=== PATIENT | male | born 1950 | race Caucasian/White ===

== ENCOUNTER 2017-11-20 07:30 | Inpatient (IN) ==
[2017-11-13 13:40] LABS: Appearance,Urine CLEAR; Bilirubin,Urine NEG (NEG); Color,Urine YELLOW; Glucose,Urine (UA) NEGATIVE (NEG); Leukocyte Esterase,Urine NEG /uL (NEG); Protein,Urine NEG (NEG); Specific Gravity,Urine 1.021 (1.000-1.035); Urine Blood NEG mg/dL (<0.03); Urobilinogen,Urine NEG (NEG)
[2017-11-13 15:40] LABS: Basophils # (Auto) 0 K/mcL (0.0-0.3); Basophils % (Auto) 0.3 % (0.0-2.0); Eosinophils # (Auto) 0.1 K/mcL (0.0-0.7); Eosinophils % (Auto) 1.6 % (0.0-7.0); Granulocytes % (Auto) 77.5 % (38.0-78.0); Lymphocytes # (Auto) 1.2 K/mcL (1.5-4.8); Lymphocytes % (Auto) 14.5 % (15.5-49.0); Mean Cell Volume 94.2 fL (80.0-100.0); Monocytes # (Auto) 0.5 K/mcL (0.1-0.9); Monocytes % (Auto) 6.1 % (1.0-12.0); Platelet Count 199 K/mcL (140-440); RBC 4.89 M/mcL (4.50-5.90); Red Cell Distribution Width 12.9 % (11.5-14.5)
[2017-11-13 16:04] LABS: Blood Urea Nitrogen 18 mg/dl (8-23)
[~2017-11-20 07:30] MED LIST: 0.9 % SODIUM CHLORIDE 9 ML, KETOROLAC 30 MG, ROPIVACAINE HCL/PF 49.5 ML, EPINEPHrine 0.... IJ SCH; CELECOXIB 200 MG CAPSULE PO SCH; PREGABALIN 75 MG CAPSULE PO SCH; oxyCODONE 10 MG TAB.ER.12H PO SCH
[2017-11-20] MEDS ORDERED: ceFAZolin 1 GM VIAL IV SCH (09:15)
[2017-11-20] MEDS ORDERED: SCOPOLAMINE 1 PATCH PATCH TOPICAL ONE (09:25)
[2017-11-20] MEDS ORDERED: TRANEXAMIC ACID 1,000 MG/10 ML VIAL IV ONE (09:50)
[2017-11-20] MEDS ORDERED: ONDANSETRON 4 MG/2 ML VIAL IV ONE (09:50)
[2017-11-20] MEDS ORDERED: MIDAZOLAM 5 MG/5 ML VIAL IV ONE (09:50)
[2017-11-20] MEDS ORDERED: DEXAMETHASONE 10 MG/ML VIAL IV ONE (09:50)
[2017-11-20] MEDS ORDERED: PROPOFOL 200 MG/20 ML VIAL IV ONE (09:50)
[2017-11-20] MEDS ORDERED: LIDOCAINE HCL/PF 100 MG/5 ML SYRINGE IV ONE (09:50)
[2017-11-20] MEDS ORDERED: ePHEDrine 50 MG/ML AMPUL IV ONE (09:50)
[2017-11-20] MEDS ORDERED: GENTAMICIN SULFATE 800 MG/20 ML VIAL IR ONE (10:13)
[2017-11-20] MEDS ORDERED: fentaNYL 100 MCG/2 ML VIAL IV PRN (11:03)
[2017-11-20] MEDS ORDERED: NALOXONE HCL 0.4 MG/ML VIAL IV PRN (11:03)
[2017-11-20] MEDS ORDERED: IPRATROPIUM/ALBUTEROL 3 ML AMPUL.NEB NEB PRN (11:03)
[2017-11-20] MEDS ORDERED: ONDANSETRON 4 MG/2 ML VIAL IV PRN ×2 (11:03→11:11)
[2017-11-20] MEDS ORDERED: diphenhydrAMINE 50 MG/ML VIAL IV PRN (11:03)
[2017-11-20] MEDS ORDERED: BENZOCAINE/MENTHOL 1 LOZENGE PO PRN ×2 (11:03→11:11)
[2017-11-20] MEDS ORDERED: FLUMAZENIL 0.1 MG/ML ML IV PRN (11:03)
[2017-11-20] MEDS ORDERED: PROMETHAZINE 25 MG/ML VIAL IV PRN (11:03)
[2017-11-20] MEDS ORDERED: ACETAMINOPHEN 1,000 MG/100 ML BOTTLE IV ONE (11:03)
[2017-11-20] MEDS ORDERED: LACTATED RINGERS 250 ML IV PRN (11:03)
[2017-11-20] MEDS ORDERED: MEPERIDINE 25 MG/ML SYRINGE IV PRN (11:03)
[2017-11-20] MEDS ORDERED: KETOROLAC 15 MG/ML VIAL IV PRN (11:03)
--- NOTE | 2017-11-20 11:10 | Brief Operative Note ---
Date of procedure: 11/20/17 Pre-op diagnosis: right knee oa Post-op diagnosis: same Procedure: right total knee arthroplasty Grafts/Implants: Yes Anesthesia: GETA, spinal Complications: none Surgeon: Stewart Sanchez Craft Worker: Tere Araujo Estimated blood loss (cc): 150 Tourniquet Time (Minutes): 53 Specimens Removed/Pathology: none sent Condition: stable Disposition: PACU
[2017-11-20] MEDS ORDERED: POLYETHYLENE GLYCOL 3350 17 GM PACKET PO PRN (11:11)
[2017-11-20] MEDS ORDERED: MAGNESIUM HYDROXIDE 30 ML ORAL.SUSP PO PRN (11:11)
[2017-11-20] MEDS ORDERED: ONDANSETRON ODT 4 MG TABLET SL PRN (11:11)
[2017-11-20] MEDS ORDERED: TRANEXAMIC ACID 1,000 MG/10 ML VIAL IV SCH (11:11)
[2017-11-20] MEDS ORDERED: BISACODYL 10 MG SUPP.RECT PR PRN (11:11)
[2017-11-20] MEDS ORDERED: METHOCARBAMOL 750 MG TABLET PO PRN (11:11)
[2017-11-20] MEDS ORDERED: ACETAMINOPHEN 325 MG TABLET PO PRN (11:11)
[2017-11-20] MEDS ORDERED: FLEETS ADULT ENEMA PR PRN (11:11)
[2017-11-20] MEDS ORDERED: LACTATED RINGERS 1,000 ML IV SCH (11:15)
[2017-11-20] MEDS ORDERED: 0.9 % SODIUM CHLORIDE 1,000 ML IV SCH (11:15)
--- NOTE | 2017-11-20 11:49 | Operative Note ---
DATE OF OPERATION: 11/20/2017 PREOPERATIVE DIAGNOSIS: Degenerative joint disease, right knee. POSTOPERATIVE DIAGNOSIS: Degenerative joint disease, right knee. PROCEDURE PERFORMED: Right total knee arthroplasty. SURGEON: Denise Sanchez M.D. HEAD OF HUMAN RESOURCES SURGEON: Tere Araujo PA-C. ANESTHESIA: Spinal with LMA assist. ESTIMATED BLOOD LOSS: 150 mL. COMPLICATIONS: None noted. SPECIMENS REMOVED: None. DRAINS: None. TOURNIQUET TIME: 53 minutes at 300 mmHg. IMPLANTS: DePuy Attune tibial base fixed bearing size 6, cemented; DePuy Attune posterior stabilized size 7, right cemented; DePuy Attune patella medialized dome 38 mm cemented AOX; DePuy Attune tibial insert fixed bearing posterior stabilized size 7, 5 mm AOX. INDICATIONS: The patient has had a long-standing history of worsening pain in the knee that has failed conservative treatment. Radiographs have confirmed advanced degenerative joint disease. After a long discussion about treatment options, the patient elected to proceed with a knee arthroplasty. The risks and benefits were discussed with the patient in detail including, but not limited to, the risks of anesthesia, problems with the heart or lungs related to anesthesia, infection, compromise or injury to the nerves and blood vessels, deep venous thrombosis, pulmonary embolism, pneumonia, continued pain after surgery, worsening pain or symptoms after surgery, swelling, loss of motion, instability, leg length discrepancy, and need for repeat surgery. DESCRIPTION OF PROCEDURE: The patient was seen in the pre-anesthesia waiting room where all questions were answered and the correct side and site were identified and marked. The patient was transferred to the operating room and administered the anesthetic and given pre-operative antibiotics. A time-out was then called. The extremity was prepped and draped, exsanguinated, and the tourniquet was inflated to 300 mmHg. A midline skin incision was then made with a standard medial parapatellar arthrotomy. Debridement of the menisci, ACL, and PCL was performed followed by balancing releases in the medial lateral plane. We then established intramedullary access to both the femur and tibia in a standard fashion. The femoral guide kong was initially placed with the distal femoral guide, pinned into place, and the distal femoral cut was performed and checked with a flat plate. We then turned our attention to the tibia. The intramedullary guide was placed with the proximal tibial cutting block. The block was appropriately positioned off the affected side, varus and valgus was checked with the extra-medullary guide, and the block was pinned into place. The proximal tibial cut was performed and the tibia was prepared for the tibial implant with appropriate rotation. The tibia, femur, and posterior compartment were debrided of osteophytes, loose bodies, and meniscal fragments We then used the gap balancing technique to balance extension with the first two cuts and good balancing was obtained with a 10 millimeter gap block. We turned our attention back to the femur and used the referencing block and implant to size appropriately. Using the gap balancing technique for the flexion space we set our rotation of the femur off the tibial cut. Anesthesia gave the patient 1 gram of Tranexamic Acid via an intravenous route. We placed the 4 in 1 cutting block and made anterior, posterior, and chamfer cuts. Box plasty cuts were then made in a standard fashion for the posterior stabilized prosthesis. We then completed osteophyte release and posterior capsule release from the posterior compartment. Trials were placed and we chose the polyethylene insert thickness that provided the best stability in all planes. With the trials in place, we did a measured resection for a resurfacing patella. We sized the patella and placed the patella trial and performed a lateral facetectomy with the saw and rongeur. Good tracking was obtained. We removed all trials, irrigated and dried all cut surfaces. We cemented the components into place including tibia, femur and patella. We placed a trial liner and held the knee in full extension with the patella compressed while the cement cured. We then removed all excess cement and placed the final polyethylene tibiofemoral component. Irrigation with 3 liters of antibiotic saline was then performed using jet-lavage. We let the tourniquet down and coagulated bleeding vessels. We injected a 100 cubic centimeter volume including Ropivacaine 49.25 cubic centimeters at 5 milligrams per cubic centimeter, Ketorolac 30 milligrams, and Epinephrine 0.5 milligrams into 100 cubic centimeters volume of normal saline. We closed the retinaculum with #2 Stratafix and 0 Vicryl. We closed the subcutaneous tissue and skin in layers out to Dermabond on the skin. A sterile pressure dressing was applied. All needle and sponge counts were correct. The patient was transferred to the recovery room in stable condition. CONCEPCIÓN:maritza Job ID: [id number] Doc ID: [id number] Denise Sanchez MD
[2017-11-20] MEDS: KETOROLAC 15 MG/ML VIAL IV SCH ×2 (11:54→17:50)
--- NOTE | 2017-11-20 12:23 | XRay Report ---
CLINICAL INFORMATION: Postsurgical follow-up TECHNIQUE: AP and crosstable lateral right knee COMPARISON: None. FINDINGS: Status post right total knee arthroplasty. Normal anatomic alignment. There is postsurgical and intra-articular soft tissue gas IMPRESSION: Status post right total knee arthroplasty Interpreted and Authenticated by: Stewart Diez 11/20/17
[2017-11-20] MEDS: 0.9 % SODIUM CHLORIDE 10 ML SYRINGE IV SCH (14:21)
[2017-11-20] MEDS: HYDROcodone/APAP 10/325MG TABLET PO PRN (14:26)
[2017-11-20] MEDS: ceFAZolin 1 GM VIAL IV SCH (17:50)
[2017-11-20] MEDS: ASPIRIN 325 MG ENTERIC COATED TABLET PO SCH (21:00)
[2017-11-20] MEDS ORDERED: SENNOSIDES 1 TABLET PO SCH (21:00)
[2017-11-20] MEDS: DOCUSATE SODIUM 100 MG CAPSULE PO SCH (21:00)
[2017-11-21] MEDS: KETOROLAC 15 MG/ML VIAL IV SCH ×3 (00:58→11:15)
[2017-11-21] MEDS: 0.9 % SODIUM CHLORIDE 10 ML SYRINGE IV SCH ×3 (00:59→11:15)
[2017-11-21] MEDS: ceFAZolin 1 GM VIAL IV SCH (00:59)
[2017-11-21] MEDS: HYDROcodone/APAP 10/325MG TABLET PO PRN ×3 (02:04→12:53)
--- NOTE | 2017-11-21 07:14 | Discharge Summary ---
Providers - Providers Patient information: Note initiated : 11/21/17 at 7:12 am Service Date, if different from initiated Date: [] Patient: Timmy Stewart 67 y/o M admitted on 11/20/17 for Right Total Knee Arthroplasty. Chief Complaint: [POD #1 s/p right TKA Doing great. Reports mild to no pain. No CP, SOB, calf pain, numbness, tingling. Ambulating and urinating well. No questions or concerns.] Discharge date: 11/21/17 Hospitalization Hospital course: Patient was brought to OR yesterday for right TKA which went on without complication. Was admitted overnight for post op management and pain control. He will d/c today to home and follow up in clinic in 10-14 days for post op appt. Discharge diagnosis: knee osteoarthritis Exam - Exam Incision healing: Yes Incision draining: No Incision red: No Incision swollen: No Incision inflamed: No Clean and dry: Yes Weight bearing status: as tolerated Range of motion: full ankle/foot. 5 deg ext/70 deg flex Ortho Discharge - TKA - Patient Instructions Diet: Regular Diet Activity: weight bearing as tolerated Total Knee Protocol: For Total Knee: Start ROM MARKO with stationary bike or rocking chair. Work on gaining full extension of knee. Posterior dislocation precautions provided. Hip abductor strengthening and gait training instructions provided. Apply Cryocuff as instructed. Dressing Care: May shower in 2 days, Other (dermabond) Additional Dressing Instructions: leave dermabond in place until post op appt. Remove gauze/AGUSTIN for shower. Pat glue patch dry once done and replace gauze - Follow Up Plan Follow Up Appointments: Tere Araujo PA-C [Physician [employer]] - 12/05/17 9:00 am Disposition: Home, Self-Care Prognosis: Good Rehab Potential: Good I certify that the patient requires SNF services: No Overall status at discharge: patient is progressing back to baseline - Orders For Discharge Prescriptions: Aspirin [Ecotrin] 325 mg PO BID #60 tab.ec HYDROcodone/APAP 10/325MG [[place] 10-325Mg] 1 - 2 tab PO Q4HP PRN #60 tab PRN Reason: Pain Level 3-6 Additional Discharge Orders: Physical Therapy at Discharge - TKA Location: None Selected Walker Location: None Selected Pending Studies Resuscitation Status Full Code Diet Regular Diet Start Tue Sep 4 1112 Hydrocodone Bitart/Acetaminophen ([place] 10/325mg) 0 tab PO Q4HP PRN PRN Reason: PAIN LEVEL 3-6 Last Admin: 11/21/17 02:04 Dose: 2 tab Admin: 11/20/17 14:26 Dose: 1 tab Aspirin (Ecotrin) 325 mg PO BID [facility] Last Admin: 11/20/17 21:00 Dose: 325 mg Docusate Sodium (Colace) 100 mg PO BID [facility] Last Admin: 11/20/17 21:00 Dose: Not Given Ketorolac Tromethamine (Toradol) 15 mg IV Q6 [facility] Stop: 11/22/17 06:01 Last Admin: 11/21/17 06:18 Dose: 15 mg Admin: 11/21/17 00:58 Dose: 15 mg Admin: 11/20/17 17:50 Dose: 15 mg Admin: 11/20/17 11:54 Dose: 15 mg Methocarbamol (Robaxin) 750 mg PO Q6HP PRN PRN Reason: Muscle Spasm Last Admin: 11/20/17 14:26 Dose: 750 mg Senna (Senokot) 2 tab PO HS [facility] Last Admin: 11/20/17 21:00 Dose: Not Given Sodium Chloride (Saline Flush) 10 ml IV Q8 [facility] Last Admin: 11/21/17 06:21 Dose: 10 ml Admin: 11/21/17 00:59 Dose: 10 ml Admin: 11/20/17 14:21 Dose: Not Given Shift Summary 11/21/17 03:36 Shift Summary by Whitney Carson Pt ambulated halls before bed; from room to ICU to cafeteria & back. Was in CPM for 2.5 hours at 80 degrees flexion because he was having no pain. Block began to wear off around 0300; pain meds given. Taking PO w/o nausea; tolerating diet well. Voiding into urinal in bathroom w/o problems. Hoping to go home today. Initialized on 11/21/17 03:36 - END OF NOTE
[2017-11-21] MEDS: DOCUSATE SODIUM 100 MG CAPSULE PO SCH (09:46)
[2017-11-21] MEDS: ASPIRIN 325 MG ENTERIC COATED TABLET PO SCH (09:46)
== END 2017-11-21 13:00 | disposition home or self-care (01) | DRG 470 ==
LOC: MEDSUR 07:30
PROVIDERS: ADMIT Orthopaedic Surgery Sports Medicine; ATTEND Orthopaedic Surgery Sports Medicine

== ENCOUNTER 2018-08-20 06:57 | Inpatient (IN) ==
[2018-08-14 10:24] LABS: Appearance,Urine CLEAR; Bilirubin,Urine NEG (NEG); Color,Urine YELLOW; Culture Indicated,Urine NO; Glucose,Urine (UA) NEGATIVE (NEG); Ketones,Urine NEG (NEG); Leukocyte Esterase,Urine NEG /uL (NEG); Nitrate,Urine NEG (NEG); Protein,Urine NEG (NEG); Specific Gravity,Urine 1.021 (1.000-1.035); Urine Blood NEG mg/dL (<0.03); Urobilinogen,Urine NEG (NEG)
[2018-08-14 12:07] LABS: Blood Urea Nitrogen 19 mg/dl (8-23); Carbon Dioxide 28 mmol/L (22-30); Chloride 106 mmol/L (96-108); Glomerular Filtration Rate 87; Glucose 98 mg/dL (70-105); Potassium 3.8 mmol/L (3.3-5.1); Sodium 143 mmol/L (133-145)
[2018-08-14 12:12] LABS: Basophils # (Auto) 0 K/mcL (0.0-0.3); Basophils % (Auto) 0.5 % (0.0-2.0); Eosinophils # (Auto) 0.2 K/mcL (0.0-0.7); Eosinophils % (Auto) 4.4 % (0.0-7.0); Granulocytes % (Auto) 61.5 % (38.0-78.0); Hematocrit 44.1 % (41.0-55.0); Hemoglobin 14.7 g/dL (13.5-16.5); Lymphocytes # (Auto) 1.1 K/mcL (1.5-4.8); Lymphocytes % (Auto) 25.2 % (15.5-49.0); Mean Cell Volume 95.3 fL (80.0-100.0); Mean Corpuscular HGB Conc 33.4 g/dL (31.0-36.0); Mean Platelet Volume 9.2 fL (7.4-10.4); Monocytes # (Auto) 0.4 K/mcL (0.1-0.9); Monocytes % (Auto) 8.4 % (1.0-12.0); Platelet Count 209 K/mcL (140-440); RBC 4.63 M/mcL (4.50-5.90); Red Cell Distribution Width 12.8 % (11.5-14.5); WBC 4.4 K/mcL (4.5-11.0)
[2018-08-14 12:36] LABS: Prothrombin Time 13.6 sec (11.9-14.5)
[~2018-08-20 06:57] MED LIST changes: +IPRATROPIUM/ALBUTEROL 3 ML AMPUL.NEB NEB PRN; +SCOPOLAMINE 1 PATCH PATCH TOPICAL PRN; +ceFAZolin 2 GM in DEXTROSE 5% IN WATER 50 ML IV SCH
[2018-08-20] MEDS ORDERED: ONDANSETRON 4 MG/2 ML VIAL IV ONE (10:25)
[2018-08-20] MEDS ORDERED: LIDOCAINE HCL/PF 100 MG/5 ML SYRINGE IV ONE (10:25)
[2018-08-20] MEDS ORDERED: DEXAMETHASONE 10 MG/ML VIAL IV ONE (10:25)
[2018-08-20] MEDS ORDERED: PROPOFOL 200 MG/20 ML VIAL IV ONE (10:25)
[2018-08-20] MEDS ORDERED: TRANEXAMIC ACID 1,000 MG/10 ML VIAL IV ONE ×2 (10:25→11:55)
[2018-08-20] MEDS ORDERED: ROPIVACAINE HCL/PF 20 ML VIAL IJ ONE (10:25)
[2018-08-20] MEDS ORDERED: ePHEDrine 50 MG/ML AMPUL IV ONE (10:25)
[2018-08-20] MEDS ORDERED: MIDAZOLAM 2 MG/2 ML VIAL IV ONE (10:25)
[2018-08-20] MEDS ORDERED: GLYCOPYRROLATE 0.2 MG/ML VIAL IV ONE (10:25)
[2018-08-20] MEDS ORDERED: PHENYLEPHRINE 10 MG/ML VIAL IV ONE (10:25)
[2018-08-20] MEDS ORDERED: ONDANSETRON 4 MG ODT TABLET SL PRN (11:55)
[2018-08-20] MEDS ORDERED: MAGNESIUM HYDROXIDE 30 ML ORAL.SUSP PO PRN (11:55)
[2018-08-20] MEDS ORDERED: POLYETHYLENE GLYCOL 3350 17 GM PACKET PO PRN (11:55)
[2018-08-20] MEDS ORDERED: BISACODYL 10 MG SUPP.RECT PR PRN (11:55)
[2018-08-20] MEDS ORDERED: METHOCARBAMOL 750 MG TABLET PO PRN (11:55)
[2018-08-20] MEDS ORDERED: ONDANSETRON 4 MG/2 ML VIAL IV PRN ×2 (11:55→12:18)
[2018-08-20] MEDS ORDERED: BENZOCAINE/MENTHOL 1 LOZENGE PO PRN ×2 (11:55→12:18)
[2018-08-20] MEDS ORDERED: FLEETS ADULT ENEMA PR PRN (11:55)
--- NOTE | 2018-08-20 11:55 | Brief Operative Note ---
Date of procedure: 08/20/18 Pre-op diagnosis: right knee arthrofibrosis and pain s/p tka Post-op diagnosis: same Procedure: revision right tka with liner exchange, posterior capsular release, lateral release, IT band lengthening Grafts/Implants: Yes Anesthesia: spinal Findings: flexion contracture Complications: none Surgeon: Stewart Sanchez Film Inspector: Tere Araujo Estimated blood loss (cc): 100 Specimens Removed/Pathology: none sent Condition: stable Disposition: PACU
[2018-08-20] MEDS ORDERED: LACTATED RINGERS 250 ML IV PRN (12:18)
[2018-08-20] MEDS ORDERED: fentaNYL 100 MCG/2 ML VIAL IV PRN (12:18)
[2018-08-20] MEDS ORDERED: KETOROLAC 15 MG/ML VIAL IV PRN (12:18)
[2018-08-20] MEDS ORDERED: IPRATROPIUM/ALBUTEROL 3 ML AMPUL.NEB NEB PRN (12:18)
[2018-08-20] MEDS ORDERED: ACETAMINOPHEN 1,000 MG/100 ML BOTTLE IV ONE (12:18)
[2018-08-20] MEDS ORDERED: MEPERIDINE 25 MG/ML SYRINGE IV PRN (12:18)
[2018-08-20] MEDS ORDERED: NALOXONE HCL 0.4 MG/ML VIAL IV PRN (12:18)
[2018-08-20] MEDS ORDERED: METHOCARBAMOL 1,000 MG/10 ML VIAL IV PRN (12:18)
[2018-08-20] MEDS ORDERED: FLUMAZENIL 0.1 MG/ML ML IV PRN (12:18)
[2018-08-20] MEDS ORDERED: GENTAMICIN SULFATE 800 MG/20 ML VIAL IR ONE (12:25)
[2018-08-20] MEDS ORDERED: LACTATED RINGERS 1,000 ML IV SCH (12:30)
--- NOTE | 2018-08-20 12:53 | Operative Note ---
DATE OF OPERATION: 08/20/2018 PREOPERATIVE DIAGNOSES: Arthrofibrosis and pain status post right total knee arthroplasty. POSTOPERATIVE DIAGNOSES: Arthrofibrosis and pain status post right total knee arthroplasty with flexion contracture. PROCEDURE PERFORMED: 1. Right revision total knee arthroplasty one component with polyethylene liner exchange. 2. Extensive debridement and capsulotomy of the posterior capsule and scar tissue. 3. Lateral release, right knee. 4. IT band lengthening, right knee. SURGEON: Denise Sanchez M.D. GRAPE GROWER: Tere Araujo PA-C. The PA's assistance was required for the safe and efficient completion of the entire case. This provider's expertise and technical skill were required throughout the case. The PA assisted with preoperative coordination, intraoperative retraction, wound closure, dressing and splint application, as well as postoperative documentation and care coordination. ANESTHESIA: Spinal with LMA assist. ESTIMATED BLOOD LOSS: 100 mL. COMPLICATIONS: None noted. SPECIMENS REMOVED: Cultures x2 with DNA sequencing and frozen specimens x3 to Pathology with no white blood cells per high power field. DRAINS: None. TOURNIQUET TIME: 46 minutes at 250 mmHg. IMPLANTS: DINKlifeuy HireAHelperune tibial insert fixed bearing posterior stabilized size 7, 5 mm AOX. INDICATIONS: The patient had a previous total knee arthroplasty. He has done well but gone on to develop arthrofibrosis with a flexion contracture. He has had pain laterally, as well as in the posterior aspect of his knee and has been unable to gain more than about -15 degrees of full extension. After a long discussion about treatment options, the patient elected to proceed with a capsular release and revision total knee arthroplasty. The risks and benefits were discussed with the patient in detail including, but not limited to, the risks of anesthesia, problems with the heart or lungs related to anesthesia, infection, compromise or injury to the nerves and blood vessels, deep venous thrombosis, pulmonary embolism, pneumonia, continued pain after surgery, worsening pain or symptoms after surgery, swelling, loss of motion, instability, leg length discrepancy, and need for repeat surgery. DESCRIPTION OF PROCEDURE: The patient was seen in the pre-anesthesia waiting room where all questions were answered and the correct side and site were identified and marked. The patient was transferred to the operating room and administered the anesthetic. Pre-operative antibiotics were held until cultures and specimens were removed and then given. A time-out was then called. The extremity was prepped and draped, exsanguinated, and the tourniquet was inflated to 250 mmHg. A midline skin incision was then made with a standard medial parapatellar arthrotomy. I removed all of the scar tissue and the infrapatellar fat pad, suprapatellar fat pad and underneath the quad tendon. These specimens were sent to Pathology. I took another specimen from the notch and all came back with no white blood cells per high power field. The polyethylene liner was removed. I inspected both the femoral and the tibial components and tapped on these, and there was no evidence of loosening noted. He had a significant posterior capsular scar tissue. I used laminar spreaders. I was able to completely excise and release all of the posterior capsular scar tissue. That helped us with our extension. I then used a trial polyethylene with a 5 mm thickness. I was able to obtain full extension, full flexion. He was stable to varus and valgus. I then did a lengthening of the iliotibial band and a lateral release. Good tracking was obtained with the patella. We placed the final polyethylene liner size 7 x 5 mm. I was able again to get full extension and flexion and stable to varus-valgus stress. Irrigation with 3 liters of antibiotic saline was then performed using jet-lavage. We let the tourniquet down and coagulated bleeding vessels. We injected a 100 cubic centimeter volume including Ropivacaine 49.25 cubic centimeters at 5 milligrams per cubic centimeter, Ketorolac 30 milligrams, and Epinephrine 0.5 milligrams into 100 cubic centimeters volume of normal saline. We closed the retinaculum with #2 Stratafix and 0 Vicryl. We closed the subcutaneous tissue and skin in layers out to Dermabond on the skin. A sterile pressure dressing was applied. All needle and sponge counts were correct. The patient was transferred to the recovery room in stable condition. CONCEPCIÓN:maritza Job ID: [id number] Doc ID: [id number] Denise Sanchez MD
[2018-08-20] MEDS: 0.9 % SODIUM CHLORIDE 1,000 ML IV SCH ×2 (12:58→21:07)
[2018-08-20] MEDS: KETOROLAC 15 MG/ML VIAL IV SCH ×2 (13:05→18:44)
[2018-08-20] MEDS: 0.9 % SODIUM CHLORIDE 10 ML SYRINGE IV SCH ×2 (13:08→21:19)
[2018-08-20] MEDS: HYDROcodone/APAP 10/325MG TABLET PO PRN ×3 (13:55→21:18)
[2018-08-20] MEDS: ceFAZolin 1 GM VIAL IV SCH (19:54)
[2018-08-20] MEDS ORDERED: SENNOSIDES 1 TABLET PO SCH (21:00)
[2018-08-20] MEDS: ASPIRIN 325 MG ENTERIC COATED TABLET PO SCH (21:07)
[2018-08-20] MEDS: DOCUSATE SODIUM 100 MG CAPSULE PO SCH (21:07)
[2018-08-21] MEDS: KETOROLAC 15 MG/ML VIAL IV SCH ×3 (00:05→12:20)
[2018-08-21] MEDS: ceFAZolin 1 GM VIAL IV SCH (04:06)
[2018-08-21 05:41] LABS: Hematocrit 37.7 % (41.0-55.0); Hemoglobin 12.8 g/dL (13.5-16.5)
[2018-08-21] MEDS: 0.9 % SODIUM CHLORIDE 10 ML SYRINGE IV SCH (06:36)
--- NOTE | 2018-08-21 07:39 | Discharge Summary ---
Providers - Providers Patient information: Note initiated : 08/21/18 at 7:37 am Service Date, if different from initiated Date: [] Patient: Timmy Stewart 67 y/o M admitted on 08/20/18 for Right Total Knee Revision W/ Extensive Debridement. Chief Complaint: [POD #1 s/p right TKA revision of polyliner component with r elease of soft tissues Patient doing quite well, ambulating okay. Denies significant pain, numbness, tingling] Discharge date: 08/21/18 Hospitalization Hospital course: Patient brought to OR yesterday for above mentioned procedure. Stayed one night for post op care. Will discharge to home today. Non eventful stay. Will follow up in 10-14 days for post op care Discharge diagnosis: arthrofibrosis Exam - Exam Incision healing: Yes Incision draining: No Incision red: No Incision swollen: No Incision inflamed: No Clean and dry: Yes Weight bearing status: as tolerated Range of motion: full foot and ankle. NVI. DP/PT pulses 2+ Ortho Discharge - TKA - Patient Instructions Diet: Regular Diet Activity: weight bearing as tolerated Total Knee Protocol: For Total Knee: Start ROM MARKO with stationary bike or rocking chair. Work on gaining full extension of knee. Posterior dislocation precautions provided. Hip abductor strengthening and gait training instructions provided. Apply Cryocuff as instructed. Dressing Care: May shower in 2 days, Other (dermabond) - Follow Up Plan Follow Up Appointments: Stewart Sanchez MD [Physician] - 09/04/18 9:00 am Disposition: Home, Self-Care Prognosis: Good Rehab Potential: Good I certify that the patient requires SNF services: No Overall status at discharge: patient is progressing back to baseline - Orders For Discharge Prescriptions: Aspirin [Ecotrin] 325 mg PO DAILY #14 tab.ec HYDROcodone/APAP 10/325MG [[place] 10-325Mg] 1 - 2 tab PO Q4HP PRN #60 tab PRN Reason: Pain Level 3-6 Additional Discharge Orders: Physical Therapy at Discharge - TKA Location: None Selected CPM Discharge Order Location: None Selected Pending Studies Resuscitation Status Full Code Diet Regular Diet Start Sun 4 1156 Hydrocodone Bitart/Acetaminophen ([place] 10/325mg) 0 tab PO Q4HP PRN PRN Reason: PAIN LEVEL 3-6 Last Admin: 08/20/18 21:18 Dose: 1 tab Documented by: Admin: 08/20/18 15:11 Dose: 1 tab Documented by: Admin: 08/20/18 13:55 Dose: 1 tab Documented by: JONATHON Aspirin (Ecotrin) 325 mg PO BID [facility] Last Admin: 08/20/18 21:07 Dose: 325 mg Documented by: SUSANA Docusate Sodium (Colace) 100 mg PO BID [facility] Last Admin: 08/20/18 21:07 Dose: Not Given Documented by: SUSANA Ketorolac Tromethamine (Toradol) 15 mg IV Q6 [facility] Stop: 08/22/18 06:01 Last Admin: 08/21/18 06:36 Dose: 15 mg Documented by: Admin: 08/21/18 00:05 Dose: 15 mg Documented by: Admin: 08/20/18 18:44 Dose: 15 mg Documented by: Admin: 08/20/18 13:05 Dose: 15 mg Documented by: JONATHON Methocarbamol (Robaxin) 750 mg PO Q6HP PRN PRN Reason: Muscle Spasm Last Admin: 08/20/18 15:11 Dose: 750 mg Documented by: JONATHON Senna (Senokot) 2 tab PO HS [facility] Last Admin: 08/20/18 21:07 Dose: Not Given Documented by: SUSANA Sodium Chloride (Saline Flush) 10 ml IV Q8 [facility] Last Admin: 08/21/18 06:36 Dose: 10 ml Documented by: Admin: 08/20/18 21:19 Dose: 10 ml Documented by: Admin: 08/20/18 13:08 Dose: 10 ml Documented by: JONATHON Shift Summary 08/21/18 05:33 Shift Summary by Whitney Carson slept most of the night. Was in CPM up to 60 degrees. Ambulated to BR twice for voids. Received norco once to keep ahead of pain. States knee only hurts when he bends it, no pain w/CPM bending it. BP ran low tonight, but pt had no s/s of dizziness or sepsis. Planning on going home today. Initialized on 08/21/18 05:33 - END OF NOTE
[2018-08-21] MEDS: DOCUSATE SODIUM 100 MG CAPSULE PO SCH (08:50)
[2018-08-21] MEDS: ASPIRIN 325 MG ENTERIC COATED TABLET PO SCH (08:51)
[2018-08-21] MEDS: HYDROcodone/APAP 10/325MG TABLET PO PRN (09:03)
--- NOTE | 2018-08-21 13:11 | Surgical Pathology Report ---
HISTOLOGY SPECIMEN MICROSCOPIC DIAGNOSIS SPECIMEN A - SOFT TISSUE, RIGHT KNEE PATELLAR BOX, BIOPSY: -- PORTIONS OF FIBROVASCULAR TISSUE WITH SLIGHT CHRONIC INFLAMMATION AND FIBROSIS. -- LESS THAN ONE NEUTROPHIL/hpf. SPECIMEN B - SOFT TISSUE, RIGHT KNEE SUPRAPATELLAR TISSUE, BIOPSY: -- FIBROVASCULAR TISSUE WITH IRREGULAR FIBROSIS AND MILD CHRONIC INFLAMMATION. -- LESS THAN ONE NEUTROPHIL/hpf. SPECIMEN C - SOFT TISSUE, RIGHT KNEE INFRAPATELLAR TISSUE, BIOPSY: -- FIBROVASCULAR TISSUE WITH IRREGULAR FIBROSIS AND MILD CHRONIC INFLAMMATION. -- LESS THAN ONE NEUTROPHIL/hpf. (ACP:pearl) INTRAOPERATIVE CONSULTATION FROZEN SECTION DIAGNOSIS (Performed at [place], [place]). SPECIMEN A - KNEE, RIGHT PATELLAR BOX, BIOPSY: -- LESS THAN ONE NEUTROPHIL/hpf. SPECIMEN B - KNEE, RIGHT SUPRAPATELLAR TISSUE, BIOPSY: -- LESS THAN ONE NEUTROPHIL/hpf. SPECIMEN C - KNEE, RIGHT INFRAPATELLAR TISSUE, BIOPSY: -- LESS THAN ONE NEUTROPHIL/hpf. (ACP:pearl) CLINICAL HISTORY Right knee pain, S/P total knee. GROSS DESCRIPTION Specimen A is received fresh as right patellar box and consists of multiple white and red portions of tissue that measure 1.6 x 1.2 x 0.6 cm in aggregate. Entirely submitted for frozen section analysis. Specimen B is received fresh as right knee suprapatellar tissue and consists of a portion of fibroadipose tissue with patchy areas of choi discoloration and hyperemia that measures 3.0 x 2.0 x 1.3 cm. Resident Services Supervisor tissue submitted for frozen section analysis and for permanent sections as [id number]. Specimen C is received fresh as right knee infrapatellar tissue and consists of a choi-felix portion of fibroadipose tissue that measures 3.8 x 2.5 x 1.0 cm. Resident Services Supervisor tissue submitted for frozen section analysis and for permanent sections as [id number]. (ACP:pearl) Electronically Signed by: Paras Stewart M.D.
== END 2018-08-21 13:40 | disposition home or self-care (01) | DRG 489 ==
LOC: MEDSUR 06:57
PROVIDERS: ADMIT Orthopaedic Surgery Sports Medicine; ATTEND Orthopaedic Surgery Sports Medicine